=== PATIENT | female | born 1995 | race African-American/Black ===

== ENCOUNTER 2019-07-26 01:01 | Inpatient (IN) | payer MEDICAID ==
[~2019-07-26] VITALS: Ht 165.1 cm; Wt 77.1 kg
[2019-07-26] MEDS ORDERED: RHO(D) IMMUNE GLOBULIN 300 MCG/SYR IM ONE (01:30)
[2019-07-26] MEDS ORDERED: NALOXONE HCL 0.4 MG/ML 1ML VIAL IM PRN (01:30)
[2019-07-26] MEDS ORDERED: RHO(D) IMMUNE GLOBULIN 300 MCG/SYR IM PRN (01:45)
[2019-07-26] MEDS: LACTATED RINGERS 1,000 ML IV SCH ×2 (01:48→03:14)
[2019-07-26] MEDS ORDERED: BUTORPHANOL TARTRATE 2 MG/ML VIAL IM PRN (02:00)
[2019-07-26] MEDS ORDERED: VANCOMYCIN 1500MG in DEXTROSE 5% WATER 250ML IV NR (03:00)
[2019-07-26 03:04] LABS: CLARITY URINE CLEAR (CLEAR); COLOR URINE YELLOW (YELLOW); KETONES URINE 2+ (NEGATIVE); LEUKOCYTE ESTERASE URINE 3+ (NEGATIVE); NITRITE URINE NEGATIVE (NEGATIVE); OCCULT BLOOD URINE 3+ (NEGATIVE); PH URINE 7.5 (4.5-8.0); PROTEIN URINE NEGATIVE (NEGATIVE); SPECIFIC GRAVITY URINE 1.014 (1.005-1.030)
[2019-07-26 03:05] LABS: BASOPHILS % 0.5 % (0.0-2.0); EOSINOPHILS % 0.5 % (0.0-5.0); HEMATOCRIT. 37.3 % (36.0-48.0); HEMOGLOBIN. 12.6 g/dL (12.0-16.0); MEAN CORPUSCULAR HEMOGLOBIN 28.8 pg (28.0-32.0); MEAN CORPUSCULAR VOLUME 84.8 fL (81.0-99.0); MEAN PLATELET VOLUME 9.6 fl (7.4-10.4); MONOCYTES % 8.3 % (2.0-8.0); NEUTROPHILS % 80.7 % (40.0-76.0); PLATELET 282 x1000/uL (130-400)
[2019-07-26 03:14] LABS: INR 0.9; PARTIAL THROMBOPLASTIN TIME 26.9 sec (23.4-31.0); PROTHROMBIN TIME 9.8 sec (9.6-11.0)
[2019-07-26] MEDS ORDERED: ROPIVACAINE HCL 10MG/ML 20 ML VIAL EPI ONE (03:15)
[2019-07-26 03:18] LABS: *AMPHETAMINES SCREEN URINE NEGATIVE (NEGATIVE); *BARBITURATES SCREEN URINE NEGATIVE (NEGATIVE); *BENZODIAZEPINES SCREEN URINE NEGATIVE (NEGATIVE); *COCAINE SCREEN URINE NEGATIVE (NEGATIVE)
[2019-07-26 03:19] LABS: CANNABINOID URINE SCREEN NEGATIVE (NEGATIVE); METHADONE URINE SCREEN NEGATIVE (NEGATIVE); OPIATES URINE SCREEN NEGATIVE (NEGATIVE); PHENCYCLIDINE URINE SCREEN NEGATIVE (NEGATIVE)
[2019-07-26] MEDS ORDERED: FENTANYL CITRATE/PF 50MCG/ML 2ML VIAL ONE (03:33)
[2019-07-26] MEDS ORDERED: ROPIVACAINE HCL/PF EPIDURAL 200 ML EPI PRN (03:45)
[2019-07-26 04:24] LABS: HEPATITIS B SURFACE ANTIGEN NEGATIVE
[2019-07-26] MEDS ORDERED: DEXT 5%/LR + PITOCIN 20UNITS/L 1,000 ML IV ONE (07:43)
[2019-07-26] MEDS ORDERED: GLYCERIN/WITCH HAZEL LEAF MEDICATED PAD TOP PRN (08:45)
[2019-07-26] MEDS ORDERED: IBUPROFEN 800MG TABLET PO PRN (08:45)
[2019-07-26] MEDS ORDERED: HEMORRHOIDAL SUPP PR PRN (08:45)
[2019-07-26] MEDS ORDERED: IBUPROFEN 400MG TABLET PO PRN (08:45)
[2019-07-26] MEDS ORDERED: DIPHENHYDRAMINE 25MG CAPSULE PO PRN (08:45)
[2019-07-26] MEDS ORDERED: BISACODYL 10MG SUPP PR PRN (08:45)
[2019-07-26] MEDS ORDERED: DEXT 5%/LR + PITOCIN 20UNITS/L 1,000 ML IV SCH (09:00)
[2019-07-26] MEDS ORDERED: PRENATAL VIT/FE FUMARATE/FA TABLET PO SCH (09:00)
[2019-07-26 10:36] LABS: CHLORIDE 105 mEq/L (98-107)
[2019-07-26 11:15] VITALS: BP 105/50
[2019-07-26 11:30] VITALS: BP 101/44
[2019-07-26] MEDS ORDERED: VANCOMYCIN 1 G PREMIX 200 ML IV SCH (12:00)
[2019-07-26 12:30] VITALS: BP 93/47
[2019-07-26] MEDS: BENZOCAINE/LANOLIN/ALOE VERA SPRAY TOP PRN ×2 (13:31→21:34)
[2019-07-26] MEDS: ACETAMINOPHEN WITH CODEINE 300/30MG TABLET PO PRN ×2 (13:31→20:34)
[2019-07-26 16:19] VITALS: BP 104/47
[2019-07-26 19:30] VITALS: BP 117/67
[2019-07-26] MEDS: SIMETHICONE 80MG TABLET CHEW PO SCH (20:36)
[2019-07-26] MEDS: MAGNESIUM/ALUMINUM HYDROXIDE/SIMETHICONE 30ML UDC PO SCH (20:36)
[2019-07-26] MEDS ORDERED: DOCUSATE SODIUM 100MG CAPSULE PO SCH (21:00)
[2019-07-27] MEDS: ACETAMINOPHEN WITH CODEINE 300/30MG TABLET PO PRN ×3 (00:40→11:15)
[2019-07-27 04:00] VITALS: BP 114/61
[2019-07-27] MEDS ORDERED: FERROUS SULFATE 325MG TABLET PO SCH (07:30)
[2019-07-27 07:32] LABS: BASOPHILS % 0.3 % (0.0-2.0); EOSINOPHILS % 1.9 % (0.0-5.0); HEMATOCRIT. 33.6 % (36.0-48.0); HEMOGLOBIN. 11.2 g/dL (12.0-16.0); LYMPHOCYTES % 22.8 % (20.0-50.0); MEAN CORPUSCULAR HEMOGLOBIN 28.5 pg (28.0-32.0); MEAN CORPUSCULAR VOLUME 85.6 fL (81.0-99.0); MEAN PLATELET VOLUME 8.9 fl (7.4-10.4); MONOCYTES % 10.3 % (2.0-8.0); NEUTROPHILS % 64.7 % (40.0-76.0); PLATELET 286 x1000/uL (130-400); RED BLOOD CELL COUNT 3.92 mill/uL (4.2-5.4); RED CELL DISTRIBUTION WIDTH 13.9 % (11.6-14.6)
[2019-07-27 09:25] VITALS: BP 107/79
[2019-07-27] MEDS: MAGNESIUM/ALUMINUM HYDROXIDE/SIMETHICONE 30ML UDC PO SCH (11:14)
[2019-07-27 11:15] VITALS: BP 107/79
[2019-07-27] MEDS: SIMETHICONE 80MG TABLET CHEW PO SCH (11:15)
== END 2019-07-27 13:50 | disposition home or self-care (01) | DRG 560 ==
LOC: OBSVTOIN 01:01 → 8 EST LDRP 01:01 → 8EST 11:00
PROVIDERS: ADMIT Obstetrics & Gynecology; ATTEND Obstetrics & Gynecology
PROC: 10D07Z6 Extraction of Products of Conception, Vacuum, Via Natural or Artificial Opening (ICD-10-PCS; principal; 2019-07-26)
PROC: 3E0R3BZ Introduction of Anesthetic Agent into Spinal Canal, Percutaneous Approach (ICD-10-PCS; 2019-07-26)
PROC: 00HU33Z Insertion of Infusion Device into Spinal Canal, Percutaneous Approach (ICD-10-PCS; 2019-07-26)
DX: O80 Encounter for full-term uncomplicated delivery (principal); Z37.0 Single live birth; Z3A.40 40 weeks gestation of pregnancy; Z88.0 Allergy status to penicillin
CPT/HCPCS: 36415; 80053; 80305; 81003; 85025; 86592; 86703; 86762; 86850; 86900; 87340; 99281; J0595; J2590; J2795; J3010; J3370; J7060; J7120

== ENCOUNTER 2022-08-16 19:09 | Observation (INO) | payer MEDICAID, OTHER ==
[~2022-08-16] VITALS: Ht 165.1 cm; Wt 77.1 kg
[2022-08-16] MEDS ORDERED: LACTATED RINGERS 1,000 ML IV SCH ×2 (20:30)
[2022-08-16] MEDS ORDERED: CLINDAMYCIN IN 0.9 % SOD CHLOR 50 ML IV NR (20:30)
[2022-08-16 20:45] LABS: CLARITY URINE CLEAR (CLEAR); COLOR URINE YELLOW (YELLOW); KETONES URINE NEGATIVE (NEGATIVE); LEUKOCYTE ESTERASE URINE 3+ (NEGATIVE); NITRITE URINE NEGATIVE (NEGATIVE); OCCULT BLOOD URINE NEGATIVE (NEGATIVE); PH URINE 7.5 (4.5-8.0); PROTEIN URINE NEGATIVE (NEGATIVE); SPECIFIC GRAVITY URINE 1.007 (1.005-1.030); UROBILINOGEN URINE 0.2 E.U./dL (0.2-1.0)
[2022-08-16] MEDS ORDERED: CLINDAMYCIN IN 0.9 % SOD CHLOR 50 ML IV ONE (20:55)
[2022-08-16] MEDS ORDERED: ACETAMINOPHEN 325MG TABLET PO NR (21:00)
[2022-08-16] MEDS ORDERED: METRONIDAZOLE 500 MG PREMIX 100 ML IV NR (21:15)
[2022-08-16] MEDS ORDERED: PREN1TAB78 PO (23:10)
== END 2022-08-17 09:30 | disposition home or self-care (01) ==
LOC: 8 EST LDRP 19:09
PROVIDERS: ADMIT Obstetrics & Gynecology; ATTEND Obstetrics & Gynecology
DX: O26.852 Spotting complicating pregnancy, second trimester (principal); O99.891 Other specified diseases and conditions complicating pregnancy; M54.50 Low back pain, unspecified; O62.9 Abnormality of forces of labor, unspecified; Z3A.25 25 weeks gestation of pregnancy
CPT/HCPCS: 59025; 76805; 81003; 96360; 96361; 96365; 96366; 96367; 99281; G0378; J3490; J7120

== ENCOUNTER 2023-10-11 08:20 | Emergency (ER) | payer OTHER ==
[~2023-10-11] VITALS: Ht 165.1 cm; Wt 84.0 kg
[~2023-10-11 08:20] MED LIST: IBUP-2030 PO; NYST15CR36 TP; PREN1TAB78 PO
[2023-10-11 08:27] VITALS: O2SAT 99
[2023-10-11 08:36] VITALS: BP 134/62; PULSE 60; RESP 18; TEMP 98.9
[2023-10-11] MEDS: IBUPROFEN 600MG TABLET PO ONE (09:29)
[2023-10-11] MEDS: ONDANSETRON 4MG ODT PO ONE (09:29)
[2023-10-11] MEDS ORDERED: ONDA4TAB11 PO (09:54)
[2023-10-11] MEDS: ACETAMINOPHEN 325MG TABLET PO ONE (11:11)
== END 2023-10-11 11:24 | disposition home or self-care (01) ==
LOC: ER 08:20
DX: B34.9 Viral infection, unspecified (principal); J45.909 Unspecified asthma, uncomplicated; Z88.0 Allergy status to penicillin
CPT/HCPCS: 99284; 71045; 87426; 87804 ×2; Q0162